=== PATIENT | male | born 1940 | race Caucasian/White ===

== ENCOUNTER → 2016-08-30 | Outpatient (CLI) | payer BC ==
[~2016-08-30] MED LIST: ALLERGY RELIE15.8 ML NS; ATORVASTATIN CA10 MG PO; ATROVENT I0.2 MG/1 M IH; ATROVENT NASAL15 ML NS; AUGMENTIN 875-1 EAC1 PO; BIAXIN500 M1 PO; COMBIVENT RESPI1 SPR IH; COZAAR25 M1 PO; KLONOPIN 0.5MG0.5 MG PO; NORCO 325 MG-51 TA1 PO; NORVASC 5MG5 MG/TAB PO; OMEPRAZOLE40 MG PO; PHARBEDRYL25 MG PO; PREDNISONE20 M1 PO; PROAIR HFA0.09 MG/AC IH; SIMVASTATIN40 M1 PO; SINGULAIR PO; [UNRECOGNIZED DRUG - OTHER] PO
== END ==
LOC: RAD 11:07
DX: R05 Cough (principal)
CPT/HCPCS: Q9967

== ENCOUNTER 2016-09-01 21:48 | Emergency (ER) | payer BC ==
[2016-09-01] MEDS ORDERED: PREDNISONE20 M1 PO (23:57)
[2016-09-02 00:21] VITALS: BP 145/78
[2016-09-02] MEDS ORDERED: AUGMENTIN 875-1 EAC1 PO (02:17)
[2016-09-02] MEDS ORDERED: [UNRECOGNIZED DRUG - OTHER] PO (02:18)
[2016-09-02] MEDS ORDERED: COMBIVENT RESPI1 SPR IH (02:19)
[2016-09-02] MEDS ORDERED: KLONOPIN 0.5MG0.5 MG PO (02:19)
[2016-09-02] MEDS ORDERED: PROAIR HFA0.09 MG/AC IH (02:19)
[2016-09-02] MEDS ORDERED: ATROVENT NASAL15 ML NS (02:20)
[2016-09-02] MEDS ORDERED: SINGULAIR PO (02:20)
[2016-09-02] MEDS ORDERED: NORVASC 5MG5 MG/TAB PO (02:20)
[2016-09-02] MEDS ORDERED: OMEPRAZOLE40 MG PO (02:21)
[2016-09-02] MEDS ORDERED: SIMVASTATIN40 M1 PO (02:21)
[2016-10-19] MEDS ORDERED: ATORVASTATIN CA10 MG PO (13:49)
[2016-10-19] MEDS ORDERED: PHARBEDRYL25 MG PO (13:50)
[2016-10-19] MEDS ORDERED: KLONOPIN 0.5MG0.5 MG PO (13:50)
[2016-10-19] MEDS ORDERED: COZAAR25 M1 PO (13:51)
[2016-10-19] MEDS ORDERED: BIAXIN500 M1 PO (14:30)
[2016-10-19] MEDS ORDERED: ALLERGY RELIE15.8 ML NS (14:32)
[2016-10-19] MEDS ORDERED: NORCO 325 MG-51 TA1 PO (14:33)
[2016-10-19] MEDS ORDERED: ATROVENT I0.2 MG/1 M IH (14:33)
== END 2016-09-02 00:21 | disposition home or self-care (01) ==
LOC: ED 21:48
DX: J45.909 Unspecified asthma, uncomplicated (principal); Z87.891 Personal history of nicotine dependence; K21.9 Gastro-esophageal reflux disease without esophagitis; G47.30 Sleep apnea, unspecified; Z85.89 Personal history of malignant neoplasm of other organs and systems
CPT/HCPCS: J2930

== ENCOUNTER → 2016-10-19 | Outpatient (CLI) | payer BC ==
[~2016-10-19] VITALS: Ht 180.3 cm; Wt 74.1 kg
[2016-10-19 13:44] VITALS: BP 119/78
[2016-10-19 14:18] VITALS: BP 130/87
[2016-10-19 14:30] VITALS: BP 132/85
== END ==
LOC: AMSURD 13:36
DX: R07.9 Chest pain, unspecified (principal)
CPT/HCPCS: J1200; J2920; Q9967

== ENCOUNTER → 2018-01-21 | Outpatient (CLI) | payer BC ==
[2016-10-19 14:30] VITALS: BP 132/85
== END ==
LOC: RAD 15:05
DX: M79.605 Pain in left leg (principal)

== ENCOUNTER → 2018-11-06 | Outpatient (CLI) | payer BC ==
[2016-10-19 14:30] VITALS: BP 132/85
== END ==
LOC: LAB 11-05 16:09
DX: J18.9 Pneumonia, unspecified organism (principal)

== ENCOUNTER → 2019-03-30 | Outpatient (CLI) | payer BC ==
[2016-10-19 14:30] VITALS: BP 132/85
== END ==
LOC: RAD 09:33
DX: R10.9 Unspecified abdominal pain (principal)

== ENCOUNTER → 2020-04-07 | Outpatient (CLI) | payer BC ==
[2016-10-19 14:30] VITALS: BP 132/85
== END ==
LOC: LAB 10:04
DX: Z20.828 Contact with and (suspected) exposure to other viral communicable diseases (principal)

== ENCOUNTER → 2020-04-12 | Day surgery (SDC) | payer BC ==
[2016-10-19 14:30] VITALS: BP 132/85
== END | disposition home or self-care (01) ==
LOC: MSO 07:26
DX: H25.812 Combined forms of age-related cataract, left eye (principal); J44.9 Chronic obstructive pulmonary disease, unspecified; I10 Essential (primary) hypertension; E78.00 Pure hypercholesterolemia, unspecified; Z88.1 Allergy status to other antibiotic agents; Z79.52 Long term (current) use of systemic steroids; Z79.899 Other long term (current) drug therapy
CPT/HCPCS: 00142; J0171; J3010; V2632

== ENCOUNTER → 2023-11-18 | Outpatient (CLI) | payer BC | LOC: RAD 14:46 | DX: R06.02 Shortness of breath (principal); R07.9 Chest pain, unspecified ==

== ENCOUNTER → 2024-07-23 | Outpatient (CLI) | payer BC | LOC: RAD 11:59 → LAB 11:59 | DX: R05.9 Cough, unspecified (principal) ==